=== PATIENT | female | born 1935 | race Caucasian/White ===

== ENCOUNTER 2020-04-09 12:47 | Inpatient (IN) | payer MEDICARE, SELFPAY ==
[2020-04-09] VITALS (17 sets, daily range): BP systolic 102–166; BP diastolic 53–118; PULSE 107–142; RESP 13–26; TEMP 36.8–37.7; O2SAT 94–100; BMI 43.8
--- NOTE | ~2020-04-09 | XR_ITS ---
EXAMINATION: XR chest 1V portable INDICATION: Pneumonia TECHNIQUE: Portable AP chest at 1307 hours COMPARISON: 04/09/2020 FINDINGS: There is stable cardiomegaly. Patchy interstitial and airspace opacities persist with sligh t improvement. No pleural effusion or pneumothorax is identified. IMPRESSION: 1. Patchy bilateral opacities with interval improvement, consistent with atelectasis versus pneumonia versus pulmonary edema. 2. Cardiomegaly. Reviewed, dictated and finalized at location B. IMPRESSION: 1. Patchy bilateral opacities with interval improvement, consistent with atelec tasis versus pneumonia versus pulmonary edema. 2. Cardiomegaly.
--- NOTE | ~2020-04-09 | XR_ITS ---
EXAMINATION: XR chest 1V portable DATE: 04/14/2020 06:32 INDICATION: Pneumonia TECHNIQUE: frontal view of the chest was obtained. COMPARISON: Chest radiograph dated 04/11/2020 FINDINGS: Cardiomegaly. No interval change in a mildly increased interstitial pattern throughout both lungs. No pleural effusion or pneumothorax. IMPRESSION: 1. . Diffuse bilateral increased interstitial pattern which could represent pulmonary edema or pneumo nehemiah. 2. Cardiomegaly. Reviewed, dictated and finalized at location A. IMPRESSION: 1. . Diffuse bilateral increased interstitial pattern which could represent pul monary edema or pneumonia. 2. Cardiomegaly.
--- NOTE | ~2020-04-09 | XR_ITS ---
EXAMINATION: XR chest 1V portable INDICATION: Nausea and weakness TECHNIQUE: Portable AP chest at 1333 hours COMPARISON: 06/05/2010 FINDINGS: There are patchy bilateral interstitial and airspace opacities. Cardiomegaly is noted. No p leural effusion or pneumothorax is identified. IMPRESSION: 1. Patchy bilateral opacities which could reflect atelectasis versus pneumonia versus pulmonary edema . Reviewed, dictated and finalized at location A. IMPRESSION: 1. Patchy bilateral opacities which could reflect atelectasis versus pneumonia versus pulmonary edema.
--- NOTE | 2020-04-09 12:46 | ECG_ITS ---
Measurements Intervals [place] Rate: 145 P: KS: 0 QRS: -79 QRSD: 97 T: 62 QT: 303 QTc: 472 Interpretive Statements ATRIAL FIBRILLATION WITH RAPID VENTRICULAR RESPONSE VENTRICULAR PREMATURE COMPLEXES LEFT AXIS DEVIATION INCOMPLETE RIGHT BUNDLE BRANCH BLOCK CONSIDER INFERIOR INFARCT, AGE INDETERMINATE BORDERLINE ST-T WAVE ABNORMALITY- HIGH LATERAL LEADS ABNORMAL ECG Electronically Signed On 04-09-2020 13:05:01 CDT by Leland Sauer D.O.
[2020-04-09 13:34] LABS: Basophils Absolute Auto 0.1 K/mm3 (0.0-0.1); Basophils Percent Auto 0.4 % (0.2-1.2); Eosinophils Percent Auto 0.1 % (0-4.4); Hematocrit 45.5 % (37.0-47.0); Immature Granulocyte Absolute 0.08 K/mm3 (0.00-0.031); Immature Granulocyte Percent A 0.6 % (0-0.5); Lymphocytes Percent Auto 4.5 % (18.3-44.2); Mean Corpuscular Hemoglobin 30.7 pg (26-34); Mean Platelet Volume 10.2 fl (7.4-10.4); Monocytes Absolute Auto 1.4 K/mm3 (0.1-0.6); Monocytes Percent Auto 10.3 % (2.6-8.5); Neutrophils Absolute Auto 11.4 K/mm3 (1.3-6.7); Neutrophils Percent Auto 84.1 % (45.5-73.1); Platelet Count Result 232 k/mm3 (150-375); Red Blood Count 4.89 M/mm3 (4.2-5.4); Red Cell Distribution Width 13.9 % (11.5-14.5); White Blood Count 13.5 K/mm3 (4.5-10.0)
[2020-04-09 14:00] LABS: Add Urine Microscopic? YES; Appearance Urine Turbid (Clear); Bacteria Urine 1+ /hpf; Bilirubin Urine Negative (Negative); Blood Urine 3+ (Negative); Color Urine Yellow (Yellow); Glucose Urine UA Negative (Negative); Ketones Urine Trace mg/dL (Negative); Leukocyte Esterase Ur 2+ LEU/UL (Negative); Mucus Urine Few /lpf; Nitrate Urine Positive (Negative); Protein Urine 2+ mg/dL (Negative); RBC Urine >75 /hpf (0-2); Specific Grav Ur 1.016 (1.001-1.035); WBC Clumps Urine Present /HPF; WBC Urine >75 /hpf
--- NOTE | 2020-04-09 14:23 | PC.NURSE ---
lab unrecieved blood, [employer] redrawing labwork.
--- NOTE | 2020-04-09 14:24 | PC.NURSE ---
pt moved to room 7 due to droplet precautions.
--- NOTE | 2020-04-09 14:24 | ED.GENADULT ---
HPI - General Adult General Chief complaint: Weakness Stated complaint: WEAKNESS Time Seen by Provider: 04/09/20 13:44 Source: patient History of Present Illness HPI narrative: Patient is a 84 y/o female complaining of severe generalized weakness for 3-4 days. There is no alleviating or exacerbating factor. She also has some nausea, vomiting and dysuria. She denies any headache, cough, chest pain or abdominal pain. Of note, patient was unable to get up to open the door when EMS arrived. She reports that she has not been taking her meds for several days. Related Data Home Medications Medication Instructions Recorded Confirmed furosemide 40 mg tablet 40 mg PO QAM 12/03/19 lisinopril 40 mg tablet 40 mg PO BID tablet 12/03/19 metoprolol tartrate 50 mg tablet 50 mg PO BID tablet 12/03/19 omeprazole 40 mg capsule,delayed 40 mg PO DAILY 12/03/19 release Allergies Allergy/AdvReac Type Severity Reaction Status Date / Time No Known Drug Allergies Allergy Unknown Verified 04/15/15 13:34 Review of Systems Constitutional: Constitutional: Denies chills, Denies fever(s), Denies headache(s) and Reports weakness Eyes: Eyes: Denies blurry vision ENT: Denies headache(s) and Denies neck pain Cardiovascular: Cardiovascular: Denies chest pain and Denies dyspnea Respiratory: Respiratory: Denies cough and Denies dyspnea Gastrointestinal: Gastrointestinal: Denies abdominal pain, Denies diarrhea, Reports nausea and Reports vomiting Genitourinary: Genitourinary: Denies hematuria and Reports dysuria Musculoskeletal: Musculoskeletal: Denies back pain and Denies neck pain Neurologic: Denies headache(s), Denies focal weakness and Reports weakness PMFSH Past Medical History Medical History Acquired hypothyroidism Anxiety associated with depression Essential (primary) hypertension Generalized weakness Mixed hyperlipidemia Onychomycosis Pulmonary nodules Family History Family History Sibling Family history of kidney disease Family history of coronary artery disease Patient's sister is Mother Patient's mother is Father Patient's father is Social History Social History Smoking status: Never smoker Second hand tobacco smoke exposure: No Alcohol intake: current Gender identity (if verbalized by the patient): Female Exam Const: General: no acute distress and well developed Orientation/consciousness: oriented to person, oriented to place, oriented to time and patient oriented x3 HENMT: Head: normocephalic Ears: external ears normal General nose exam: Normal external nose present Eyes: General: appearance normal, both eyes and all related structures Conjunctivae: conjunctivae normal Neck: Neck: normal visual inspection and full ROM Chest: Chest palpation & inspection: normal inspection of the chest and no tenderness Resp: Effort & Inspection: normal respiratory effort Auscultation: clear to auscultation bilaterally Cardio: Rate: tachycardic Rhythm: abnormal rhythm irregularly irregular GI: GI Palp: No abdominal tenderness and Yes Soft to palpation Skin: General skin exam: normal color and turgor normal Neuro: General: oriented to person, oriented to place, oriented to time and patient oriented x3 Cognition (Neuro): normal cognition Extrem: General: normal to inspection, full ROM and no pedal edema Psych: Appearance: grossly normal Mental Status: mental status grossly normal Affect: normal affect Course Consultations Consultation #1: Discussed with ADDISON Norris, who agrees to admit to Dr. Cadena. Date: 04/09/20 Time: 15:23 Vital Signs Vital signs: Vital Signs Temperature 37.7 C H 04/09/20 12:47 Pulse Rate 140 H 04/09/20 12:47 Respiratory Rate 22 H 04/09/20 12:47 Blood Pressure 157
[2020-04-09] MEDS: dilTIAZem HCl INJ 25 MG/5 ML VIAL 10 MG IV PUSH (14:36)
[2020-04-09 15:04] LABS: Lactic Acid Reflex 1.1 mmol/L (0.7-2.1)
[2020-04-09 15:05] LABS: Alanine Aminotransferase 24 U/L (4-35); Albumin Level 3.7 g/dL (3.5-5.1); Alkaline Phosphatase 162 U/L (38-126); Aspartate Amino Transferase 38 U/L (14-36); Blood Urea Nitrogen 20 mg/dL (7-17); Calcium 8.7 mg/dL (8.4-10.2); Carbon Dioxide 26 mmol/L (22-30); Chloride 99 mmol/L (98-107); Estimated CRCL calculation 44 ml/min; Estimated Glomerular Filt Rate 60; Glucose 132 mg/dL (65-105); Sodium 133 mmol/L (137-145)
[2020-04-09 15:12] LABS: NT Pro B Type Natriuretic Pept 3670 PG/ML (5-100)
--- NOTE | 2020-04-09 15:36 | PC.NURSE ---
SPOKE WITH MAGDIEL SORENSON ABOUT LR WEIGHT BASED BOLUS, MENTIONED PT ELEVATED BNP AND TAKING LASIX DAILY FOR FLUID RETENTION, ERP AGREES THAT PT DOES NOT NEED 30ML/KG BOLUS AND HAS GIVEN A VOR FOR 1L LR TO BE ADMINISTERED AT 999/HR.
[2020-04-09 15:44] LABS: Troponin I 0.013 ng/mL (0.000-0.034)
--- NOTE | 2020-04-09 17:35 | PC.NURSE ---
PT IRRITATED W/ STAFF THAT WE HAVE NOT FED HER, STATES THAT SHE HASN'T EATEN IN 2 WEEKS AND SHE CANNOT BELIEVE THAT WE HAVE NOT FED HER. SHE IS ALSO ANGERED THAT THERE IS A BAR ON THE SIDE OF THE STRETCHER, STATES THIS IS JUST RIDICULOUS AND NOT MADE FOR OLD PEOPLE, WHEN YOU (MYSELF) GET TO BE 83 YOU'LL ACTUALLY BE ABLE TO UNDERSTAND THAT. I THEN ASSISTED PT TO THE COMMODE AGAIN AND MADE SURE THE CALL LIGHT WAS AT THE BEDSIDE. PT TEARFUL AND UPSET, REMINDED PT THAT I WILL CALL FOR A TRAY GALO.
--- NOTE | 2020-04-09 17:41 | PC.NURSE ---
HEART HEALTHY DIET REQUEST FOR PT, SENT TO ICU.
[2020-04-09 18:14] LABS: Troponin I 0.019 ng/mL (0.000-0.034)
--- NOTE | 2020-04-09 19:18 | PM.IMHP ---
H&P: HPI History of Present Illness Date/Time: 04/09/20 19:18 Chief complaint: sepsos,uti,a fib with rvr Narrative: Liliana Navarro is a 84 year old female Who stated that she has had a poor appetite since this past Tuesday. She has been nauseated. She has a long history of atrial fibrillation she stated that they tried to cardiovert her in the past and adjusted work. She had been on Xarelto at 1 time but is no longer taking it. She is on p.o. Cardizem. The patient stated that she has not been able to take her pills the last couple days she has felt too ill. She said that she felt very weak and could not get out of bed. She also had burning with urination. She has had no cough for fever or chills. No chest pain. The patient was found to be in AFib with RVR and was placed on a Cardizem drip. She was found have a UTI. She was placed on Rocephin. Chest x-ray was read as patchy bilateral opacities which could reflect atelectasis versus pneumonia versus pulmonary edema. Per my view it looks more and like pulmonary edema. Patient has a white count of 13.5. BMP noted as 3670. I have spent approximately 1 hour critical care time with the patient. Date of service is 04/09/2020 Review of Systems Review of Systems: All systems reviewed & are unremarkable except as noted in HPI and below Constitutional: Constitutional: Reports as per HPI and Reports no additional constitutional complaints Eyes: Eyes: Reports as per HPI and Reports no additional eye complaints ENT: Reports system reviewed and no additional complaints, except as documented and Reports Normal hearing present Cardiovascular: Cardiovascular: Reports no additional cardiovascular complaints Respiratory: Respiratory: Reports no additional respiratory complaints and Reports no additional respiratory complaints Gastrointestinal: Gastrointestinal: Reports as per HPI and Reports no additional gastrointestinal complaints Musculoskeletal: Musculoskeletal: Reports no additional musculoskeletal complaints Integumentary/Breasts: Skin/Breast: Reports system reviewed and no additional complaints, except as docu and Reports as per HPI Neurologic: Reports system reviewed and no additional complaints, except as documented, Reports as per HPI and Reports Normal hearing present Psychiatric: Psychiatric: Reports no additional psychiatric complaints and Reports as per HPI Endocrine: Endocrine: Reports no additional endocrine complaints Hematologic/Lymphatic: Hematologic/Lymphatic: Reports no additional hematologic/lymphatic complaints Allergic/Immunologic: Allergic/Immunologic: Reports no additional allergic/immunologic complaints PMF Past Medical History Medical History (Updated 04/09/20 @ 19:38 by Myrna Fischer NP) Acquired hypothyroidism Anxiety associated with depression Essential (primary) hypertension ISABELLE (generalized anxiety disorder) Generalized weakness Mixed hyperlipidemia Onychomycosis Pulmonary nodules Surgical History Surgical History (Updated 04/09/20 @ 19:28 by Myrna Fischer NP) H/O colonoscopy with polypectomy H/O: hysterectomy History of tonsillectomy Family History Family History (Updated 04/09/20 @ 19:32 by Myrna Fischer NP) Sibling Family history of kidney disease Family history of coronary artery disease Patient's sister is Mother Patient's mother is Alzheimer's dementia Father Patient's father is Heart disease Social History Social History (Updated 04/09/20 @ 19:29 by Myrna Fischer NP) Social History: the patient is and she lives home alone. She has a son and a daughter but she has been which estrange from them. She thinks that her son might be her durable [id number]. The patient desires to be a full code at this point. She is retired sales secretary. She had she never smoked use marijuana alcohol or drugs. Smoking status: Never smoker Second hand tob
[2020-04-09 21:14] LABS: Troponin I 0.029 ng/mL (0.000-0.034)
[2020-04-09] MEDS: ENOXAPARIN 40 MG/0.4 ML SYRINGE SUB-Q (22:19)
[2020-04-09 22:54] LABS: SARS-CoV-2 RNA PCR Negative
[2020-04-10] VITALS (15 sets, daily range): BP systolic 114–139; BP diastolic 52–92; PULSE 80–127; RESP 20–27; TEMP 36.5–37.5; O2SAT 94–99
--- NOTE | 2020-04-10 | ECHO_ITS ---
Patient Info Name: Liliana Navarro Age: 84 years : 1935 Gender: Female Ht: 66 in Wt: 271 lbs BSA: 2.46 m2 HR: 107 bpm BP: 139 / 89 mmHg Heart Rhythm: Atrial Fibrillation Technical Quality: Fair Exam Date: 04/10/2020 1:56 PM Exam Location: [facility] Pul[facility] Patient Status: Inpatient Admit Date: 04/09/2020 Staff Ordering Physician: Myrna Fischer NP Office Nurse: Alondra Campbell RDCS Attending Provider: Debbie Cadena MD Referring Physician: Amado HANLEY; Exam Type: CA echo dop color flow w con Study Info Indications J81.0 - Acute pulmonary edema Complete two-dimensional, color flow and Doppler transthoracic echocardiogram is performed with contrast to opacify the left ventricle and to improve the deliniation of the left ventricle endocardial borders. Contrast/Agitated Saline Contrast/Ag. Saline: Definity Amount: 1.50 ml Administered By: Charlie Porter, ANGELINA Summary 1. Left ventricular chamber dimension is normal. 2. Definity contrast administered improved wall motion interpretation. 3. Left ventricular systolic function is normal, estimated at 60-65%. 4. The left ventricular diastolic function is abnormal. 5. E/e' 12 is mildly elevated. 6. Left atrial chamber dimension is moderately enlarged. 7. Right atrial chamber dimension is moderately enlarged. 8. There is mild aortic valve sclerosis. 9. There is mild aortic valve stenosis w a peak velocity of 190.96 cm/s, mean gradient of 9 mmHg, and aortic valve area of 1.9 cm2. 10. The mitral valve has mildly calcified annulus. 11. Mild systolic anterior motion of mitral valve. 12. There is mild to moderate tricuspid valve regurgitation. 13. Mild pulmonary hypertension, estimated pulmonary arterial systolic pressure is 42 mmHg. Left Ventricle E/e' 12 is mildly elevated. Definity contrast administered improved wall motion interpretation. Left ventricular chamber dimension is normal. Left ventricular systolic function is normal, estimated at 60-65%. The left ventricular diastolic function is abnormal. Right Ventricle Right ventricular chamber dimension is normal. Right ventricular systolic function is normal. Left Atria Left atrial chamber dimension is moderately enlarged. Right Atria Right atrial chamber dimension is moderately enlarged. Aortic Valve There is mild aortic valve stenosis w a peak velocity of 190.96 cm/s, mean gradient of 9 mmHg, and aortic valve area of 1.9 cm2. The aortic valve is probable trileaflet. There is mild aortic valve sclerosis. There is no aortic valve regurgitation. Pulmonic Valve There is no pulmonic regurgitation. Mitral Valve The mitral valve has mildly calcified annulus. Mild systolic anterior motion of mitral valve. There is no mitral valve stenosis. There is no mitral valve regurgitation. Tricuspid Valve There is mild to moderate tricuspid valve regurgitation. Mild pulmonary hypertension, estimated pulmonary arterial systolic pressure is 42 mmHg. Pericardium/Pleural There is no pericardial effusion. Inferior Vena Cava Normal inferior vena cava with >50% collapse upon inspiration consistent with normal right atrial pressure, 5 mmHg. Aorta The aortic root size at the sinus of Valsalva is normal. Left Ventricular Outflow Tract Name Value Normal
[2020-04-10 04:49] LABS: Basophils Percent Auto 0.4 % (0.2-1.2); Eosinophils Percent Auto 0.4 % (0-4.4); Hematocrit 45.1 % (37.0-47.0); Hemoglobin 14.5 g/dL (12.0-15.0); Immature Granulocyte Absolute 0.03 K/mm3 (0.00-0.031); Immature Granulocyte Percent A 0.3 % (0-0.5); Lymphocytes Absolute Auto 0.81 K/mm3 (0.9-3.2); Lymphocytes Percent Auto 7.9 % (18.3-44.2); Mean Corpuscular HGB Conc 32.2 g/dl (32-36); Mean Corpuscular Hemoglobin 30.7 pg (26-34); Mean Corpuscular Volume 95.3 fl (80-100); Mean Platelet Volume 10.2 fl (7.4-10.4); Monocytes Absolute Auto 1.5 K/mm3 (0.1-0.6); Monocytes Percent Auto 14.5 % (2.6-8.5); Neutrophils Absolute Auto 7.9 K/mm3 (1.3-6.7); Neutrophils Percent Auto 76.5 % (45.5-73.1); Platelet Count Result 208 k/mm3 (150-375); Red Blood Count 4.73 M/mm3 (4.2-5.4); Red Cell Distribution Width 13.7 % (11.5-14.5); White Blood Count 10.3 K/mm3 (4.5-10.0)
[2020-04-10 05:07] LABS: Alanine Aminotransferase 24 U/L (4-35); Albumin Level 3.4 g/dL (3.5-5.1); Alkaline Phosphatase 151 U/L (38-126); Anion Gap 11.6 mmol/L (7-16); Aspartate Amino Transferase 43 U/L (14-36); Bilirubin,Total 0.9 mg/dL (0.2-1.3); Blood Urea Nitrogen 23 mg/dL (7-17); Calcium 8.5 mg/dL (8.4-10.2); Carbon Dioxide 28 mmol/L (22-30); Chloride 96 mmol/L (98-107); Estimated CRCL calculation 49 ml/min; Estimated Glomerular Filt Rate 53; Glucose 143 mg/dL (65-105); Magnesium 1.7 mg/dL (1.6-2.3); Potassium 3.6 mmol/L (3.4-5.0); Sodium 132 mmol/L (137-145)
--- NOTE | 2020-04-10 08:53 | PC.NURSE ---
This patient, Liliana Navarro, was received from [ICU report from [facility] ] on 04/10/20 at 0854. Personal belongings list checked and signed. Patient/family oriented to unit policies and routines. Patient stable and received breakfast tray eating well. Cardizem drip running at 15 mls/hr.
[2020-04-10] MEDS: PERFLUTREN LIPID MICROSPHERES 1.5 ML VIAL DILUTED TO 10 ML TOTAL VOLUME IV PUSH (14:29)
[2020-04-10] MEDS: ENOXAPARIN 40 MG/0.4 ML SYRINGE SUB-Q (19:58)
[2020-04-11] VITALS (14 sets, daily range): BP systolic 120–155; BP diastolic 65–95; PULSE 60–126; RESP 18–24; TEMP 36.5–37.4; O2SAT 95–98; BMI 10.0
[2020-04-11 08:57] LABS: Hematocrit 42.2 % (37.0-47.0); Hemoglobin 13.9 g/dL (12.0-15.0); Mean Corpuscular HGB Conc 32.9 g/dl (32-36); Mean Platelet Volume 10.2 fl (7.4-10.4); Platelet Count Result 224 k/mm3 (150-375); Red Blood Count 4.49 M/mm3 (4.2-5.4); Red Cell Distribution Width 13.7 % (11.5-14.5); White Blood Count 8.1 K/mm3 (4.5-10.0)
[2020-04-11 09:11] LABS: Alanine Aminotransferase 25 U/L (4-35); Albumin Level 3.2 g/dL (3.5-5.1); Alkaline Phosphatase 135 U/L (38-126); Anion Gap 9.7 mmol/L (7-16); Aspartate Amino Transferase 39 U/L (14-36); Bilirubin,Total 0.4 mg/dL (0.2-1.3); Blood Urea Nitrogen 26 mg/dL (7-17); Calcium 8.4 mg/dL (8.4-10.2); Carbon Dioxide 29 mmol/L (22-30); Chloride 99 mmol/L (98-107); Estimated CRCL calculation 60 ml/min; Estimated Glomerular Filt Rate > 60; Glucose 111 mg/dL (65-105); Magnesium 1.9 mg/dL (1.6-2.3); Potassium 3.7 mmol/L (3.4-5.0); Sodium 134 mmol/L (137-145)
--- NOTE | 2020-04-11 11:32 | PCPTNOTE ---
Patient refused treatment this session. Attempted to see patient at 11:25 for PT treatment, however patient on commode and tearful/emotional. Patient requested for therapy to come back later. [employer] will attempt therapy again in PM. Shae Karimi PTA
--- NOTE | 2020-04-11 16:45 | PM.IMPN ---
Progress Note: A&P Assessment and Plan (1) Atrial fibrillation with RVR: Code(s): I48.91 - Unspecified atrial fibrillation Status: Acute Assessment and Plan: patient typically takes diltiazem at home. But stated that she was too sick to take it the last couple days. She is now on a Cardizem drip. She is located in the ICU. Her heart rate is in the lower 1 teens. Blood pressure is still slightly elevated. The patient stated that she was on Xarelto at 1 time. However she is at high risk for bleeding due to her age and instability. 04/11/20 16:45 patient is 84-year-old female presented emergency with with complaint generalized weakness nausea or vomiting and dysuria, patient has history of atrial fibrillation and has been taking oral diltiazem however due to symptoms she has not been able to take any of her medication for last 2 days and nausea presented in atrial fibrillation with RVR patient was started on diltiazem drip rate is trending down however patient has lost her IV and off the drip difficult to start IV, will start the patient on diltiazem 60 mg q.6 monitor will consult Cardiology further recommendation, chest x-ray shows patchy infiltrate and being treated with community-acquired pneumonia with Rocephin and azithromycin, patient also has a dysuria urine culture is growing E coli sensitive to Rocephin will continue, patient still complains of dysuria and frequency of urination denies any fever or chills denies any chest pain palpitation. (2) CAP (community acquired pneumonia): Code(s): J18.9 - Pneumonia, unspecified organism Status: Acute Assessment and Plan: Patient is on a Zithromax and Rocephin. When I looked at the chest x-ray myself it looks more like pulmonary edema. I did order an echo for her. At 1 time she had been on Lasix a couple years ago according to [facility] has not renewed her prescription. (3) UTI (urinary tract infection): Qualifiers: Hematuria presence: without hematuria Urinary tract infection type: site unspecified Qualified Code(s): N39.0 - Urinary tract infection, site not specified Code(s): N39.0 - Urinary tract infection, site not specified Status: Acute Assessment and Plan: She is on Rocephin. Urine and blood cultures ar (4) Suspected COVID-19 virus infection: Code(s): Z20.828 - Contact with and (suspected) exposure to other viral communicable diseases Status: Acute (5) ISABELLE (generalized anxiety disorder): Code(s): F41.1 - Generalized anxiety disorder Status: Chronic Assessment and Plan: continue with her Celexa. (6) Essential (primary) hypertension: Code(s): I10 - Essential (primary) hypertension Status: Acute Assessment and Plan: She is on oral diltiazem typically but now she is on a drip at this time. (7) Acquired hypothyroidism: Code(s): E03.9 - Hypothyroidism, unspecified Status: Acute Assessment and Plan: Continue to levothyroxine and check thyroid level (8) Anxiety associated with depression: Code(s): F41.8 - Other specified anxiety disorders Status: Acute Assessment and Plan: Continue with Celexa. Subjective Date/time seen: 04/11/20 16:45 patient is 84-year-old female presented emergency with with complaint generalized weakness nausea or vomiting and dysuria, patient has history of atrial fibrillation and has been taking oral diltiazem however due to symptoms she has not been able to take any of her medication for last 2 days and nausea presented in atrial fibrillation with RVR patient was started on diltiazem drip rate is trending down however patient has lost her IV and off the drip difficult to start IV, will start the patient on diltiazem 60 mg q.6 monitor will consult Cardiology further recommendation, chest x-ray shows patchy infiltrate and being treated with community-acquired pneumonia with Rocephin and a
[2020-04-11] MEDS: dilTIAZem HCL 60 MG TABLET PO (18:36)
[2020-04-11] MEDS: CELECOXIB 200 MG CAPSULE PO (18:36)
[2020-04-11] MEDS: ENOXAPARIN 40 MG/0.4 ML SYRINGE SUB-Q (21:29)
[2020-04-12] VITALS (12 sets, daily range): BP systolic 120–152; BP diastolic 62–96; PULSE 72–119; RESP 16–22; TEMP 35.6–36.9; O2SAT 93–98
[2020-04-12] MEDS: dilTIAZem HCL 60 MG TABLET PO ×4 (00:24→18:35)
[2020-04-12 04:57] LABS: Hematocrit 39.9 % (37.0-47.0); Hemoglobin 12.9 g/dL (12.0-15.0); Mean Corpuscular HGB Conc 32.3 g/dl (32-36); Mean Corpuscular Hemoglobin 30.3 pg (26-34); Mean Corpuscular Volume 93.7 fl (80-100); Mean Platelet Volume 9.8 fl (7.4-10.4); Platelet Count Result 233 k/mm3 (150-375); Red Blood Count 4.26 M/mm3 (4.2-5.4); Red Cell Distribution Width 13.6 % (11.5-14.5); White Blood Count 7.9 K/mm3 (4.5-10.0)
[2020-04-12 05:14] LABS: Anion Gap 6 mmol/L (8-16); Blood Urea Nitrogen 25 mg/dL (7-17); Calcium 8.5 mg/dL (8.4-10.2); Carbon Dioxide 29 mmol/L (22-30); Chloride 100 mmol/L (98-107); Estimated CRCL calculation 60 ml/min; Estimated Glomerular Filt Rate > 60; Glucose 110 mg/dL (65-105); Potassium 3.6 mmol/L (3.4-5.0); Sodium 135 mmol/L (137-145)
[2020-04-12] MEDS: LEVOTHYROXINE SODIUM 150 MCG TABLET PO (06:18)
--- NOTE | 2020-04-12 08:39 | WPDCN ---
Assessment and Plan Assessment and plan (1) Atrial fibrillation with RVR: Code(s): I48.91 - Unspecified atrial fibrillation Status: Acute Assessment and Plan: Patient has a long history of paroxysmal atrial fibrillation and was admitted with AFib RVR after she had stopped her diltiazem because of illness. Heart rate is now controlled with p.o. diltiazem. I will switch her to Home medication of diltiazem 240 mg daily. Discussed atrial fibrillation extensively with the patient, need for ongoing medication, and risk of cardioembolic events. She tolerated Eliquis well in the past and we will resume this. she is aware of the risk of GI bleeding when combined with nonsteroidal such as Celebrex, but also states her arthritis is so severe that she can't do without it. She tolerated Celebrex with Eliquis in the past, and has no history of GI bleeding. (2) Acute diastolic CHF (congestive heart failure): Code(s): I50.31 - Acute diastolic (congestive) heart failure Status: Acute Assessment and Plan: The patient appears to have had some transient diastolic heart failure on admission which has mostly resolved with better heart rate control, due to AFib RVR and diastolic dysfunction. (3) UTI (urinary tract infection): Qualifiers: Hematuria presence: without hematuria Urinary tract infection type: site unspecified Qualified Code(s): N39.0 - Urinary tract infection, site not specified Code(s): N39.0 - Urinary tract infection, site not specified Status: Acute Assessment and Plan: On antibiotics, improving. Blood cultures negative. (4) Essential (primary) hypertension: Code(s): I10 - Essential (primary) hypertension Status: Acute Assessment and Plan: Will resume the diltiazem (5) Mixed hyperlipidemia: Code(s): E78.2 - Mixed hyperlipidemia Status: Acute Assessment and Plan: currently not treated. (6) Noncompliance: Code(s): Z91.19 - Patient's noncompliance with other medical treatment and regimen Status: Acute Assessment and Plan: Patient has been noncompliant with follow-up with our office which may be a problem with appropriate medical care. (7) Anxiety associated with depression: Code(s): F41.8 - Other specified anxiety disorders Status: Acute Assessment and Plan: The patient has psychosocial stressors and no family support. She may benefit from social director. She is wondering how long she will be able to remain in her own house but has no help. Additional Plan Okay to transfer out of [facility] Data of Consult Date/Time: 04/12/20 08:39 Requesting Physician: Debbie Cadena MD Primary Care Provider: Bimal Khanna DO Consult Narrative Narrative: Date of service: 04/12/2020 Liliana Navarro is a 84 year old female Whom we were asked to see at the request of Dr. Cadena for advice and opinion regarding the patient's AFib RVR, in consultation. . New the patient felt ill and weak for the last several days, too sick to get out of bed, with dysuria. She also stopped taking her medications. She was admitted with AFib RVR, heart rate in the 140s as well as a UTI and possible pneumonia /CHF. She was treated with IV Cardizem and has been switched to diltiazem 60 mg q.6 hours. Telemetry shows her AFib rate ranges between 70 and 100 beats per minute. the patient has a history of paroxysmal atrial fibrillation and moderate mitral and tricuspid regurgitation seen by echo in 2013. She has hypertensive heart disease, hyperlipidemia and has had some mild bradycardia in the past. She has been on amiodarone in the past, stopped in 2008 for suspected ami
[2020-04-12] MEDS: CELECOXIB 200 MG CAPSULE PO ×2 (08:45→18:35)
[2020-04-12] MEDS: CITALOPRAM HYDROBROMIDE 20 MG TABLET PO (08:45)
--- NOTE | 2020-04-12 12:59 | PC.NURSE ---
This patient, Liliana Navarro, was transferred to [facility] on 04/12/20 at 1252. Personal belongings sent with patient. Belongings list checked. Report given to Jenna ALFARO. Appropriate documentation sent with patient.
--- NOTE | 2020-04-12 14:03 | PM.IMPN ---
Progress Note: A&P Assessment and Plan (1) Atrial fibrillation with RVR: Code(s): I48.91 - Unspecified atrial fibrillation Status: Acute Assessment and Plan: patient typically takes diltiazem at home. But stated that she was too sick to take it the last couple days. She is now on a Cardizem drip. She is located in the ICU. Her heart rate is in the lower 1 teens. Blood pressure is still slightly elevated. The patient stated that she was on Xarelto at 1 time. However she is at high risk for bleeding due to her age and instability. 04/12/20 14:03 patient is 84-year-old female presented emergency with with complaint generalized weakness nausea or vomiting and dysuria, patient has history of atrial fibrillation and has been taking oral diltiazem however due to symptoms she has not been able to take any of her medication for last 2 days and nausea presented in atrial fibrillation with RVR patient was started on diltiazem drip rate is trending down however patient had lost her IV and off the drip difficult to start IV, started the patient on diltiazem 60 mg q.6 monitor, today rate is trading and was seen Cardiology and switched patient to her home dose of Diltiazem 240mg daily and starte back on he Eliquis to prevent risk of CVA. chest x-ray showed patchy infiltrate and being treated with community-acquired pneumonia with Rocephin and azithromycin, patient also has a dysuria urine culture is growing E coli sensitive to Rocephin will continue, today patient states feeling much abdominal pain dysuria has improved and shortness of breath is better denies any chest pain shortness of breath palpitation fever or chills. (2) CAP (community acquired pneumonia): Code(s): J18.9 - Pneumonia, unspecified organism Status: Acute Assessment and Plan: Patient is on a Zithromax and Rocephin. When I looked at the chest x-ray myself it looks more like pulmonary edema. I did order an echo for her. At 1 time she had been on Lasix a couple years ago according to [facility] has not renewed her prescription. (3) UTI (urinary tract infection): Qualifiers: Hematuria presence: without hematuria Urinary tract infection type: site unspecified Qualified Code(s): N39.0 - Urinary tract infection, site not specified Code(s): N39.0 - Urinary tract infection, site not specified Status: Acute Assessment and Plan: She is on Rocephin. Urine and blood cultures ar (4) Suspected COVID-19 virus infection: Code(s): Z20.828 - Contact with and (suspected) exposure to other viral communicable diseases Status: Acute (5) ISABELLE (generalized anxiety disorder): Code(s): F41.1 - Generalized anxiety disorder Status: Chronic Assessment and Plan: continue with her Celexa. (6) Essential (primary) hypertension: Code(s): I10 - Essential (primary) hypertension Status: Acute Assessment and Plan: She is on oral diltiazem typically but now she is on a drip at this time. (7) Acquired hypothyroidism: Code(s): E03.9 - Hypothyroidism, unspecified Status: Acute Assessment and Plan: Continue to levothyroxine and check thyroid level (8) Anxiety associated with depression: Code(s): F41.8 - Other specified anxiety disorders Status: Acute Assessment and Plan: Continue with Celexa. Subjective Date/time seen: 04/12/20 14:03 patient is 84-year-old female presented emergency with with complaint generalized weakness nausea or vomiting and dysuria, patient has history of atrial fibrillation and has been taking oral diltiazem however due to symptoms she has not been able to take any of her medication for last 2 days and nausea presented in atrial fibrillation with RVR patient was started on diltiazem drip rate is trending down however patient had lost her IV and off the drip difficult to start IV, started the patient on diltiazem 60 mg
--- NOTE | 2020-04-12 15:43 | PC.NURSE ---
I responded to room 303 after hearing the patient yelling out loud at a [employer] tech. When I asked the patient why she was yelling she stated that no one has helped her do anything today. I asked the patient to provide examples of when this has happened so I could address them and she told me that I won't be able to help her. I explained to what my role is as the charge nurse and that I would be able to help figure out what staff is not responding to. The patient then cut me off from speaking and mimicked talking and started making noises. Bed alarm was turned on and call light was put within reach of the patient.
--- NOTE | 2020-04-12 18:37 | PCDIET ---
This patient, Liliana Navarro, was received from IMU on 04/12/20 at 1250. Report received from ANGELINA Odonnell. Personal belongings list checked and signed. Patient/family oriented to unit policies and routines
[2020-04-12] MEDS: APIXABAN 5 MG TABLET PO (20:27)
[2020-04-13] VITALS (9 sets, daily range): BP systolic 108–153; BP diastolic 63–92; PULSE 84–105; RESP 18–20; TEMP 36.6–36.9; O2SAT 96–98
[2020-04-13] MEDS: dilTIAZem HCL 60 MG TABLET PO (00:46)
[2020-04-13 06:32] LABS: Hematocrit 42.2 % (37.0-47.0); Hemoglobin 13.7 g/dL (12.0-15.0); Mean Corpuscular HGB Conc 32.5 g/dl (32-36); Mean Corpuscular Hemoglobin 30.8 pg (26-34); Mean Corpuscular Volume 94.8 fl (80-100); Mean Platelet Volume 9.8 fl (7.4-10.4); Platelet Count Result 266 k/mm3 (150-375); Red Blood Count 4.45 M/mm3 (4.2-5.4); Red Cell Distribution Width 13.7 % (11.5-14.5); White Blood Count 6.9 K/mm3 (4.5-10.0)
[2020-04-13 06:54] LABS: Anion Gap 5 mmol/L (8-16); Blood Urea Nitrogen 22 mg/dL (7-17); Calcium 8.5 mg/dL (8.4-10.2); Carbon Dioxide 31 mmol/L (22-30); Chloride 100 mmol/L (98-107); Estimated CRCL calculation 68 ml/min; Estimated Glomerular Filt Rate > 60; Glucose 131 mg/dL (65-105); Potassium 3.6 mmol/L (3.4-5.0); Sodium 136 mmol/L (137-145)
[2020-04-13] MEDS: CELECOXIB 200 MG CAPSULE PO ×2 (09:26→18:44)
[2020-04-13] MEDS: APIXABAN 5 MG TABLET PO ×2 (09:26→20:18)
[2020-04-13] MEDS: CITALOPRAM HYDROBROMIDE 20 MG TABLET PO (09:26)
--- NOTE | 2020-04-13 12:19 | PM.IMPN ---
Progress Note: A&P Assessment and Plan (1) Atrial fibrillation with RVR: Code(s): I48.91 - Unspecified atrial fibrillation Status: Acute Assessment and Plan: patient typically takes diltiazem at home. But stated that she was too sick to take it the last couple days. She is now on a Cardizem drip. She is located in the ICU. Her heart rate is in the lower 1 teens. Blood pressure is still slightly elevated. The patient stated that she was on Xarelto at 1 time. However she is at high risk for bleeding due to her age and instability. 04/13/20 12:19 patient is 84-year-old female presented emergency with with complaint generalized weakness nausea or vomiting and dysuria, patient has history of atrial fibrillation and has been taking oral diltiazem however due to symptoms she has not been able to take any of her medication for last 2 days and nausea presented in atrial fibrillation with RVR patient was started on diltiazem drip rate is trending down however patient had lost her IV and off the drip difficult to start IV, started the patient on diltiazem 60 mg q.6 monitor, today rate is trading and was seen Cardiology and switched patient to her home dose of Diltiazem 240mg daily and starte back on he Eliquis to prevent risk of CVA. chest x-ray showed patchy infiltrate and being treated with community-acquired pneumonia with Rocephin and azithromycin, patient also has a dysuria urine culture is growing E coli sensitive to Rocephin will continue, today patient states feeling much abdominal pain dysuria have improved and shortness of breath is better denies any chest pain shortness of breath palpitation fever or chills. patient is clinically stable repeat checks x-ray tomorrow and further recommendation to follow (2) CAP (community acquired pneumonia): Code(s): J18.9 - Pneumonia, unspecified organism Status: Acute Assessment and Plan: Patient is on a Zithromax and Rocephin. When I looked at the chest x-ray myself it looks more like pulmonary edema. I did order an echo for her. At 1 time she had been on Lasix a couple years ago according to [facility] has not renewed her prescription. (3) UTI (urinary tract infection): Qualifiers: Hematuria presence: without hematuria Urinary tract infection type: site unspecified Qualified Code(s): N39.0 - Urinary tract infection, site not specified Code(s): N39.0 - Urinary tract infection, site not specified Status: Acute Assessment and Plan: She is on Rocephin. Urine and blood cultures ar (4) Suspected COVID-19 virus infection: Code(s): Z20.828 - Contact with and (suspected) exposure to other viral communicable diseases Status: Acute (5) ISABELLE (generalized anxiety disorder): Code(s): F41.1 - Generalized anxiety disorder Status: Chronic Assessment and Plan: continue with her Celexa. (6) Essential (primary) hypertension: Code(s): I10 - Essential (primary) hypertension Status: Acute Assessment and Plan: She is on oral diltiazem typically but now she is on a drip at this time. (7) Acquired hypothyroidism: Code(s): E03.9 - Hypothyroidism, unspecified Status: Acute Assessment and Plan: Continue to levothyroxine and check thyroid level (8) Anxiety associated with depression: Code(s): F41.8 - Other specified anxiety disorders Status: Acute Assessment and Plan: Continue with Celexa. Subjective Date/time seen: 04/13/20 12:19 patient is 84-year-old female presented emergency with with complaint generalized weakness nausea or vomiting and dysuria, patient has history of atrial fibrillation and has been taking oral diltiazem however due to symptoms she has not been able to take any of her medication for last 2 days and nausea presented in atrial fibrillation with RVR patient was started on diltiazem drip rate is trending down however patient h
--- NOTE | 2020-04-13 12:33 | PM.PNCARD ---
Progress Note: A&P Assessment and Plan (1) Atrial fibrillation with RVR: Code(s): I48.91 - Unspecified atrial fibrillation Status: Acute Assessment and Plan: Patient has a long history of paroxysmal atrial fibrillation and was admitted with AFib RVR after she had stopped her diltiazem because of illness. Heart rate is still a little fast with p.o. diltiazem, which she has been on for 2 days. Will continue to follow. Discussed atrial fibrillation extensively with the patient, need for ongoing medication, and risk of cardioembolic events. Resumed Eliquis (2) Acute diastolic CHF (congestive heart failure): Code(s): I50.31 - Acute diastolic (congestive) heart failure Status: Acute Assessment and Plan: The patient appears to have had some transient diastolic heart failure on admission which has mostly resolved with better heart rate control, due to AFib RVR and diastolic dysfunction. (3) UTI (urinary tract infection): Qualifiers: Hematuria presence: without hematuria Urinary tract infection type: site unspecified Qualified Code(s): N39.0 - Urinary tract infection, site not specified Code(s): N39.0 - Urinary tract infection, site not specified Status: Acute Assessment and Plan: On antibiotics, improving. Blood cultures negative. (4) Essential (primary) hypertension: Code(s): I10 - Essential (primary) hypertension Status: Acute Assessment and Plan: Resumed diltiazem (5) Mixed hyperlipidemia: Code(s): E78.2 - Mixed hyperlipidemia Status: Acute Assessment and Plan: currently not treated. (6) Noncompliance: Code(s): Z91.19 - Patient's noncompliance with other medical treatment and regimen Status: Acute Assessment and Plan: Patient has been noncompliant with follow-up with our office which may be a problem with appropriate medical care. Says she never felt any atrial fibrillation so did not think it needed follow-up. (7) Anxiety associated with depression: Code(s): F41.8 - Other specified anxiety disorders Status: Acute Assessment and Plan: The patient has psychosocial stressors and no family support. She may benefit from social media sr strategy manager. She is wondering how long she will be able to remain in her own house but has no help. Subjective Date/time seen: 04/13/20 12:33 Follow-up for AFib RVR. History of PAF, but patient had stopped her diltiazem because of illness. Also had acute diastolic heart failure on admission as well as UTI. Date of service: 04/13/2020. Cardizem switched from IV to p.o. yesterday, and Eliquis resumed. Feeling a little better. No palps, SOB, dizziness. Review of Systems Constitutional: Constitutional: Reports fatigue ENT: Denies epistaxis Cardiovascular: Cardiovascular: Denies chest pain, Denies pedal edema, Denies lightheadedness and Denies palpitations Respiratory: Respiratory: Denies dyspnea Gastrointestinal: Gastrointestinal: Denies abdominal pain Genitourinary: Genitourinary: Reports dysuria Musculoskeletal: Musculoskeletal: Denies back pain Integumentary/Breasts: Skin/Breast: Denies rash Neurologic: Denies confusion Psychiatric: Psychiatric: Reports depression Exam Narrative: Exam Narrative: older lady sitting up in a chair, appears a bit tired, working on her lunch Const: General: comfortable and no acute distress HENMT: General nose exam: no epistaxis Eyes: EOM: EOMs intact bilaterally Neck: Neck: supple Resp: Effort & Inspection: normal respiratory effort Auscultation: clear to auscultation bilaterally Cardio: Rhythm: abnormal rhythm irregularly irregular GI: Inspection: no
--- NOTE | 2020-04-13 14:30 | PC.NURSE ---
IV antibiotics infiltrated, patient extremely upset crying, wailing in room. Refuses to be stuck with another IV and refusing any IV antibiotics. states she is 85 and is tired of being in pain. attempted to talk with patient about importance of antibiotics. patient still refuses.
[2020-04-14] VITALS (9 sets, daily range): BP systolic 138–154; BP diastolic 73–88; PULSE 72–106; RESP 18–22; TEMP 36.6–37.2; O2SAT 95–98
[2020-04-14 06:48] LABS: Hematocrit 41.8 % (37.0-47.0); Hemoglobin 13.4 g/dL (12.0-15.0); Mean Corpuscular HGB Conc 32.1 g/dl (32-36); Mean Corpuscular Hemoglobin 30.2 pg (26-34); Mean Corpuscular Volume 94.4 fl (80-100); Mean Platelet Volume 9.7 fl (7.4-10.4); Platelet Count Result 291 k/mm3 (150-375); Red Blood Count 4.43 M/mm3 (4.2-5.4); Red Cell Distribution Width 13.6 % (11.5-14.5); White Blood Count 7.9 K/mm3 (4.5-10.0)
[2020-04-14 07:07] LABS: Anion Gap 4 mmol/L (8-16); Blood Urea Nitrogen 21 mg/dL (7-17); Calcium 8.6 mg/dL (8.4-10.2); Carbon Dioxide 31 mmol/L (22-30); Chloride 100 mmol/L (98-107); Estimated CRCL calculation 69 ml/min; Estimated Glomerular Filt Rate > 60; Glucose 110 mg/dL (65-105); Potassium 3.7 mmol/L (3.4-5.0); Sodium 135 mmol/L (137-145)
[2020-04-14] MEDS: APIXABAN 5 MG TABLET PO ×2 (10:07→21:10)
[2020-04-14] MEDS: CITALOPRAM HYDROBROMIDE 20 MG TABLET PO (10:08)
[2020-04-14] MEDS: CELECOXIB 200 MG CAPSULE PO ×2 (10:08→18:48)
--- NOTE | 2020-04-14 10:24 | PM.PNCARD ---
Progress Note: A&P Assessment and Plan (1) Atrial fibrillation with RVR: Code(s): I48.91 - Unspecified atrial fibrillation Status: Acute Assessment and Plan: Patient has a long history of paroxysmal atrial fibrillation and was admitted with AFib RVR after she had stopped her diltiazem because of illness. Heart rate is still a little fast with p.o. diltiazem, which she has been on for 2 days. Will continue to follow. Discussed atrial fibrillation extensively with the patient, need for ongoing medication, and risk of cardioembolic events. Resumed Eliquis (2) Acute diastolic CHF (congestive heart failure): Code(s): I50.31 - Acute diastolic (congestive) heart failure Status: Acute Assessment and Plan: The patient appears to have had some transient diastolic heart failure on admission which has mostly resolved with better heart rate control, due to AFib RVR and diastolic dysfunction. Potassium is a little low and will replace with for the close p.o. x1 (3) UTI (urinary tract infection): Qualifiers: Hematuria presence: without hematuria Urinary tract infection type: site unspecified Qualified Code(s): N39.0 - Urinary tract infection, site not specified Code(s): N39.0 - Urinary tract infection, site not specified Status: Acute Assessment and Plan: On antibiotics, improving. Blood cultures negative. (4) Essential (primary) hypertension: Code(s): I10 - Essential (primary) hypertension Status: Acute Assessment and Plan: Resumed diltiazem (5) Mixed hyperlipidemia: Code(s): E78.2 - Mixed hyperlipidemia Status: Acute Assessment and Plan: currently not treated. (6) Noncompliance: Code(s): Z91.19 - Patient's noncompliance with other medical treatment and regimen Status: Acute Assessment and Plan: Patient has been noncompliant with follow-up with our office which may be a problem with appropriate medical care. Says she never felt any atrial fibrillation so did not think it needed follow-up. (7) Anxiety associated with depression: Code(s): F41.8 - Other specified anxiety disorders Status: Acute Assessment and Plan: The patient has psychosocial stressors and no family support. She may benefit from child protective services social worker. She is wondering how long she will be able to remain in her own house but has no help. Subjective Date/time seen: 04/14/20 10:24 Interval history: reason for consultation /chief complaint: Atrial fibrillation date of service 04/14/2020: Feeling better today. Not short of breath. No chest pain. Review of Systems Constitutional: Constitutional: Reports fatigue, Reports lethargy and Reports weakness Eyes: Eyes: Reports no additional eye complaints ENT: Denies epistaxis Cardiovascular: Cardiovascular: Denies chest pain, Denies pedal edema, Denies lightheadedness, Denies palpitations, Denies dyspnea and Denies dyspnea on exertion Respiratory: Respiratory: Denies chest congestion, Denies cough, Denies dyspnea, Denies dyspnea on exertion and Denies wheezing Gastrointestinal: Gastrointestinal: Denies abdominal pain, Denies melena, Denies hematochezia, Reports nausea and Denies hematemesis Genitourinary: Genitourinary: Denies hematuria and Reports dysuria Musculoskeletal: Musculoskeletal: Denies back pain and Reports stiffness Integumentary/Breasts: Skin/Breast: Reports erythema ( phlebitis related to IV sites) and Denies rash Neurologic: Denies confusion and Reports weakness Psychiatric: Psychiatric: Reports anxiety, Denies confusion and Reports depression Endocrine: Endocrine: Reports fatigue and Denies palpitations Allergic
[2020-04-14 12:13] LABS: SARS-CoV-2 RNA PCR Negative
[2020-04-14] MEDS: POTASSIUM CHLORIDE 20 MEQ TABLET 40 MEQ PO (13:00)
--- NOTE | 2020-04-14 16:26 | PM.IMPN ---
Progress Note: A&P Assessment and Plan (1) Atrial fibrillation with RVR: Code(s): I48.91 - Unspecified atrial fibrillation Status: Acute Assessment and Plan: patient typically takes diltiazem at home. But stated that she was too sick to take it the last couple days. She is now on a Cardizem drip. She is located in the ICU. Her heart rate is in the lower 1 teens. Blood pressure is still slightly elevated. The patient stated that she was on Xarelto at 1 time. However she is at high risk for bleeding due to her age and instability. 04/14/20 16:26 patient is 84-year-old female presented emergency with with complaint generalized weakness nausea or vomiting and dysuria, patient has history of atrial fibrillation and has been taking oral diltiazem however due to symptoms she has not been able to take any of her medication for last 2 days and nausea presented in atrial fibrillation with RVR patient was started on diltiazem drip rate is trending down however patient had lost her IV and off the drip difficult to start IV, started the patient on diltiazem 60 mg q.6 monitor, today rate is trading and was seen Cardiology and switched patient to her home dose of Diltiazem 240mg daily and starte back on he Eliquis to prevent risk of CVA. chest x-ray showed patchy infiltrate and being treated with community-acquired pneumonia with Rocephin and azithromycin, patient also has a dysuria urine culture is growing E coli sensitive to Rocephin will continue, Today patient complains or more pain cough and just not feeling very, patient repeat chest x-ray shows persistent pneumonia will go ahead stop Rocephin and add Zosyn, her urine is growing E coli sensitive to Zosyn will continue will continue PT OT and repeat x-ray in 2 days. (2) CAP (community acquired pneumonia): Code(s): J18.9 - Pneumonia, unspecified organism Status: Acute Assessment and Plan: Patient is on a Zithromax and Rocephin. When I looked at the chest x-ray myself it looks more like pulmonary edema. I did order an echo for her. At 1 time she had been on Lasix a couple years ago according to [facility] has not renewed her prescription. (3) UTI (urinary tract infection): Qualifiers: Hematuria presence: without hematuria Urinary tract infection type: site unspecified Qualified Code(s): N39.0 - Urinary tract infection, site not specified Code(s): N39.0 - Urinary tract infection, site not specified Status: Acute Assessment and Plan: She is on Rocephin. Urine and blood cultures ar (4) Suspected COVID-19 virus infection: Code(s): Z20.828 - Contact with and (suspected) exposure to other viral communicable diseases Status: Acute Assessment and Plan: test was negative (5) ISABELLE (generalized anxiety disorder): Code(s): F41.1 - Generalized anxiety disorder Status: Chronic Assessment and Plan: continue with her Celexa. (6) Essential (primary) hypertension: Code(s): I10 - Essential (primary) hypertension Status: Acute Assessment and Plan: She is on oral diltiazem typically but now she is on a drip at this time. (7) Acquired hypothyroidism: Code(s): E03.9 - Hypothyroidism, unspecified Status: Acute Assessment and Plan: Continue to levothyroxine and check thyroid level (8) Anxiety associated with depression: Code(s): F41.8 - Other specified anxiety disorders Status: Acute Assessment and Plan: Continue with Celexa. Subjective Date/time seen: 04/14/20 16:26 patient is 84-year-old female presented emergency with with complaint generalized weakness nausea or vomiting and dysuria, patient has history of atrial fibrillation and has been taking oral diltiazem however due to symptoms she has not been able to take any of her medication for last 2 days and nausea presented in atrial fibrillation with RVR patient was started on
[2020-04-15] VITALS (7 sets, daily range): BP systolic 136–148; BP diastolic 53–91; PULSE 60–112; RESP 18–20; TEMP 36.7–36.8; O2SAT 96–97
[2020-04-15 05:59] LABS: Hemoglobin 13.4 g/dL (12.0-15.0); Mean Corpuscular HGB Conc 31.9 g/dl (32-36); Mean Corpuscular Hemoglobin 30.3 pg (26-34); Mean Platelet Volume 9.7 fl (7.4-10.4); Platelet Count Result 280 k/mm3 (150-375); Red Blood Count 4.42 M/mm3 (4.2-5.4); Red Cell Distribution Width 13.7 % (11.5-14.5); White Blood Count 7.5 K/mm3 (4.5-10.0)
[2020-04-15 06:13] LABS: Anion Gap 5 mmol/L (8-16); Blood Urea Nitrogen 25 mg/dL (7-17); Calcium 8.4 mg/dL (8.4-10.2); Carbon Dioxide 29 mmol/L (22-30); Chloride 103 mmol/L (98-107); Estimated CRCL calculation 69 ml/min; Estimated Glomerular Filt Rate > 60; Glucose 114 mg/dL (65-105); Potassium 4.1 mmol/L (3.4-5.0); Sodium 137 mmol/L (137-145)
[2020-04-15] MEDS: APIXABAN 5 MG TABLET PO (10:30)
[2020-04-15] MEDS: CITALOPRAM HYDROBROMIDE 20 MG TABLET PO (10:31)
[2020-04-15] MEDS: CELECOXIB 200 MG CAPSULE PO ×2 (10:31→18:07)
--- NOTE | 2020-04-15 11:09 | PM.PNCARD ---
Progress Note: A&P Assessment and Plan (1) Atrial fibrillation with RVR: Code(s): I48.91 - Unspecified atrial fibrillation Status: Acute Assessment and Plan: Patient has a long history of paroxysmal atrial fibrillation and was admitted with AFib RVR after she had stopped her diltiazem because of illness. Heart rate is still a little fast with p.o. diltiazem, which she has been on for 2 days. Will continue to follow. Discussed atrial fibrillation extensively with the patient, need for ongoing medication, and risk of cardioembolic events. Resumed Eliquis (2) Acute diastolic CHF (congestive heart failure): Code(s): I50.31 - Acute diastolic (congestive) heart failure Status: Acute Assessment and Plan: The patient appears to have had some transient diastolic heart failure on admission which has mostly resolved with better heart rate control, due to AFib RVR and diastolic dysfunction. low-dose furosemide 20 mg daily will be started (3) UTI (urinary tract infection): Qualifiers: Hematuria presence: without hematuria Urinary tract infection type: site unspecified Qualified Code(s): N39.0 - Urinary tract infection, site not specified Code(s): N39.0 - Urinary tract infection, site not specified Status: Acute Assessment and Plan: On antibiotics, improving. Blood cultures negative. (4) Essential (primary) hypertension: Code(s): I10 - Essential (primary) hypertension Status: Acute Assessment and Plan: Resumed diltiazem (5) Mixed hyperlipidemia: Code(s): E78.2 - Mixed hyperlipidemia Status: Acute Assessment and Plan: currently not treated. (6) Noncompliance: Code(s): Z91.19 - Patient's noncompliance with other medical treatment and regimen Status: Acute Assessment and Plan: Patient has been noncompliant with follow-up with our office which may be a problem with appropriate medical care. Says she never felt any atrial fibrillation so did not think it needed follow-up. (7) Anxiety associated with depression: Code(s): F41.8 - Other specified anxiety disorders Status: Acute Assessment and Plan: The patient has psychosocial stressors and no family support. She may benefit from child protective services social worker. She is wondering how long she will be able to remain in her own house but has no help. Subjective Date/time seen: 04/15/20 11:09 Interval history: reason for consultation /chief complaint: Atrial fibrillation date of service 04/15/2020: emotionally upset today. No chest pain or shortness of breath. No palpitations or edema though Review of Systems Constitutional: Constitutional: Reports fatigue, Reports lethargy and Reports weakness Eyes: Eyes: Reports no additional eye complaints ENT: Denies epistaxis Cardiovascular: Cardiovascular: Denies chest pain, Denies pedal edema, Denies lightheadedness, Denies palpitations, Denies dyspnea and Denies dyspnea on exertion Respiratory: Respiratory: Denies chest congestion, Denies cough, Denies dyspnea, Denies dyspnea on exertion and Denies wheezing Gastrointestinal: Gastrointestinal: Denies abdominal pain, Denies melena, Denies hematochezia, Reports nausea and Denies hematemesis Genitourinary: Genitourinary: Denies hematuria and Reports dysuria Musculoskeletal: Musculoskeletal: Denies back pain and Reports stiffness Integumentary/Breasts: Skin/Breast: Reports erythema ( phlebitis related to IV sites) and Denies rash Neurologic: Denies confusion and Reports weakness Psychiatric: Psychiatric: Reports anxiety, Denies confusion and Reports depression Endocrine: Endocrine: Reports fatigue and Denies palpit
[2020-04-15] MEDS: FUROSEMIDE 20 MG TABLET PO (12:55)
--- NOTE | 2020-04-15 13:28 | PM.IMPN ---
Progress Note: A&P Assessment and Plan (1) Atrial fibrillation with RVR: Code(s): I48.91 - Unspecified atrial fibrillation Status: Acute Assessment and Plan: Patient is 84-year-old female presented emergency with with complaint generalized weakness nausea or vomiting and dysuria, patient has history of atrial fibrillation and has been taking oral diltiazem however due to symptoms she has not been able to take any of her medication for last 2 days and nausea presented in atrial fibrillation with RVR patient was started on diltiazem drip rate is trending down however patient had lost her IV and off the drip difficult to start IV, started the patient on diltiazem 60 mg q.6 monitor, today rate is trading and was seen Cardiology and switched patient to her home dose of Diltiazem 240mg daily and starte back on he Eliquis to prevent risk of CVA. Chest x-ray showed patchy infiltrate and being treated with community-acquired pneumonia with Zosyn and azithromycin, patient also has a dysuria urine culture is growing E coli. See previous notes. Ongoing cough and SOB, rpt CXr chitra. Continiue oral diltiazem (2) CAP (community acquired pneumonia): Code(s): J18.9 - Pneumonia, unspecified organism Status: Acute Assessment and Plan: Patient is on a Zithromax and Zosyn. CXR from 04/14 shows pumology edema rpt cXR chitra (3) UTI (urinary tract infection): Qualifiers: Hematuria presence: without hematuria Urinary tract infection type: site unspecified Qualified Code(s): N39.0 - Urinary tract infection, site not specified Code(s): N39.0 - Urinary tract infection, site not specified Status: Acute Assessment and Plan: Urine culture is positive for Ecoli and blood cultures are negative (4) Suspected COVID-19 virus infection: Code(s): Z20.828 - Contact with and (suspected) exposure to other viral communicable diseases Status: Acute Assessment and Plan: Test was negative (5) ISABELLE (generalized anxiety disorder): Code(s): F41.1 - Generalized anxiety disorder Status: Chronic Assessment and Plan: continue with her Celexa. (6) Essential (primary) hypertension: Code(s): I10 - Essential (primary) hypertension Status: Acute Assessment and Plan: She is on oral diltiazem typically but now she is on a drip at this time. (7) Acquired hypothyroidism: Code(s): E03.9 - Hypothyroidism, unspecified Status: Acute Assessment and Plan: Continue to levothyroxine and check thyroid level (8) Anxiety associated with depression: Code(s): F41.8 - Other specified anxiety disorders Status: Acute Assessment and Plan: Continue with Celexa. Subjective Date/time seen: 04/15/20 13:28 Interval history: DOS 04/15 Patient is 84-year-old female presented emergency with with complaint generalized weakness nausea or vomiting and dysuria, patient has history of atrial fibrillation and has been taking oral diltiazem however due to symptoms she has not been able to take any of her medication for last 2 days and nausea presented in atrial fibrillation with RVR patient was started on diltiazem drip rate is trending down however patient had lost her IV and off the drip difficult to start IV, started the patient on diltiazem 60 mg q.6 monitor, today rate is trading and was seen Cardiology and switched patient to her home dose of Diltiazem 240mg daily and started back on he Eliquis to prevent risk of CVA. chest x-ray showed patchy infiltrate and being treated with community-acquired pneumonia with zosyn and azithromycin, patient also has a dysuria urine culture is growing E coli. See previous notes Today pt has a ongoing cough will rpt CXr chitra on patient. Wcc is NL. BC negative. UC is positive for ECOLI Review of Systems Constitutional: Constitutional: Reports fatigue and Reports lethargy Cardiovascular: Cardiovascul
--- NOTE | 2020-04-15 20:30 | PC.NURSE ---
pt was given information about leaving AMA after she insisted on leaving. pt given opportunity to ask questions, but had none. IV removed and telemetry removed. pt dressed herself and was taken out by wheelchair.
--- NOTE | 2020-04-15 21:39 | PM.EVENT ---
Event Note Event Note Event Note: I was notified by nursing staff that the patient wanted to leave AMA. The patient was alert and oriented and understood consequences of leaving against medical advise. The patient exited building 8:30 p.m.
--- NOTE | 2020-04-16 06:33 | WPDCDIQUERY2 ---
CDI Query Clarification Request - Acute diastolic CHF has been documented by cardiology - CXR from 04/14 shows pumology edema rpt cXR chitra documented by hospitalist. Please clarify if acute diastolic CHF was ruled in or ruled out. <Faith Amanda RN - Last Filed: 04/16/20 06:35> Acute diastolic CHF was ruled out <Kaya Otero MD - Last Filed: 04/18/20 15:56>
--- NOTE | 2020-04-16 14:36 | PCCCNOTE ---
Received call from pt. and then call from Rosa Isela at [facility]. Pt. left AMA from the hospital last night. Pt. is now home and wants to go to [facility] for SNF as she feels unable to care for herself at home. Spoke with Rosa Isela and faxed updates including PT/OT and negative Covid-19 test. Per Rosa Isela they will submit for [facility] auth and tentatively accept from home. Call to nephew Andrew Del Valle at [phone] to inform. Also spoke with pt. and encouraged her to establish a new HPOA with a supportive family member like Andrew. Received call again from Rosa Isela at [facility] who will also contact Andrew to coordinate pt.'s transfer to [facility].
--- NOTE | 2020-04-18 15:51 | PM.DS ---
DS: Admitting Diagnosis Admitting Diagnosis Admitting Diagnosis: sepsis,uti,a fib with rvr DS: Discharge Diagnosis Discharge Diagnosis (1) Atrial fibrillation with RVR: Code(s): I48.91 - Unspecified atrial fibrillation Status: Acute Assessment and Plan: Patient is 84-year-old female presented emergency with with complaint generalized weakness nausea or vomiting and dysuria, patient has history of atrial fibrillation and has been taking oral diltiazem however due to symptoms she has not been able to take any of her medication for last 2 days and nausea presented in atrial fibrillation with RVR patient was started on diltiazem drip rate is trending down however patient had lost her IV and off the drip difficult to start IV, started the patient on diltiazem 60 mg q.6 monitor, today rate is trading and was seen Cardiology and switched patient to her home dose of Diltiazem 240mg daily and starte back on he Eliquis to prevent risk of CVA. Chest x-ray showed patchy infiltrate and being treated with community-acquired pneumonia with Zosyn and azithromycin, patient also has a dysuria urine culture is growing E coli. See previous notes. Ongoing cough and SOB, PT felt AMA 04/15 later in the evening. (2) CAP (community acquired pneumonia): Code(s): J18.9 - Pneumonia, unspecified organism Status: Acute Assessment and Plan: Patient is on a Zithromax and Zosyn. CXR from 04/14 shows pumology edema rpt cXR chitra (3) UTI (urinary tract infection): Qualifiers: Hematuria presence: without hematuria Urinary tract infection type: site unspecified Qualified Code(s): N39.0 - Urinary tract infection, site not specified Code(s): N39.0 - Urinary tract infection, site not specified Status: Acute Assessment and Plan: Urine culture is positive for Ecoli and blood cultures are negative (4) Suspected COVID-19 virus infection: Code(s): Z20.828 - Contact with and (suspected) exposure to other viral communicable diseases Status: Acute Assessment and Plan: Test was negative (5) ISABELLE (generalized anxiety disorder): Code(s): F41.1 - Generalized anxiety disorder Status: Chronic Assessment and Plan: continue with her Celexa. (6) Essential (primary) hypertension: Code(s): I10 - Essential (primary) hypertension Status: Acute Assessment and Plan: She is on oral diltiazem typically but now she is on a drip at this time. (7) Acquired hypothyroidism: Code(s): E03.9 - Hypothyroidism, unspecified Status: Acute Assessment and Plan: Continue to levothyroxine and check thyroid level (8) Anxiety associated with depression: Code(s): F41.8 - Other specified anxiety disorders Status: Acute Assessment and Plan: Continue with Celexa. DS: Summary Time Spent with Patient Time attestation: Total time spent providing and/or coordinating discharge services:20 minutes on day of discharge Exam Narrative: Exam Narrative: morbidly obese Const: Orientation/consciousness: oriented to person, oriented to place, oriented to time and patient oriented x3 Eyes: Pupils: Equal, round and reactive pupils present Chest: Chest palpation & inspection: normal inspection of the chest Resp: Auscultation: diminished lung sounds Percussion: percussion normal Other: BL decreased BS Cardio: Palpation: normal PMI Rate: regular rate Rhythm: regular rhythm Heart sounds: S1 normal heart sound present and S2 normal heart sound present Other: irregularly irregular GI: Inspection: normal to inspection Auscultation: normal bowel sounds Rectal Exam: deferred Skin: General skin exam: normal color Lesions: no lesions Rashes: no rashes Trauma: no lacerations or abrasions Wounds: no wounds Hair: normal Nails: normal Other: No edema of ankles Neuro: General: oriented to person, oriented to place, oriented to letha
== END 2020-04-15 20:30 | disposition left against medical advice (07) | DRG 308 ==
LOC: ANHED 16:09 → ANHICU 04-10 02:33 → ANHIMU 04-11 17:03 → ANH3MEDSUR 04-14 12:39 → ANHICU 04-21 08:23 → ANHIMU 04-21 08:23
PROVIDERS: General Practice; Nurse Practitioner; Admitting Provider Family Medicine; Emergency Provider Emergency Medicine; PCP Internal Medicine; Visit Provider Internal Medicine
DX: I48.91 Unspecified atrial fibrillation (principal); J18.9 Pneumonia, unspecified organism; N39.0 Urinary tract infection, site not specified; Z68.41 Body mass index [BMI] 40.0-44.9, adult; B96.20 Unspecified Escherichia coli [E. coli] as the cause of diseases classified elsewhere; E66.01 Morbid (severe) obesity due to excess calories; Z20.828 Contact with and (suspected) exposure to other viral communicable diseases; F41.1 Generalized anxiety disorder; F41.8 Other specified anxiety disorders; I10 Essential (primary) hypertension; E78.2 Mixed hyperlipidemia; Z91.19 Patient's noncompliance with other medical treatment and regimen; Z79.899 Other long term (current) drug therapy
CPT/HCPCS: 36415; 51701; 71045; 80048; 80053; 81001; 83605; 83735; 83880; 84443; 84484; 85025; 85027; 87040; 87077; 87086; 87088; 87186; 87635; 93005; 96365; 96366; 96367; 96368; 97110; 97116; 97161; 97165; 97530; 97535; 99285; A9270; C8929; C9803; J0456; J0696; J1650; J2543; J7120; Q9957; U0003

== ENCOUNTER 2020-07-16 13:26 | Outpatient (CLI) | payer MEDICARE, SELFPAY ==
--- NOTE | ~2020-07-16 | XR_ITS ---
EXAMINATION: XR chest 2V DATE: 07/16/2020 14:18 INDICATION: Heart failure, unspecified. TECHNIQUE: Frontal and lateral views of the chest were obtained on 3 radiographs. COMPARISON: Chest single view 04/14/2020, CT abdomen and pelvis 07/03/2014 FINDINGS: The chest demonstrates clear lungs without pneumonia, pleural effusion, or pneumothorax. Th e heart size is normal. IMPRESSION: 1. No acute cardiopulmonary disease. Reviewed, dictated and finalized at location B. [employer] [employer]
[2020-07-16 14:01] LABS: Basophils Absolute Auto 0.1 K/mm3 (0.0-0.1); Basophils Percent Auto 0.8 % (0.2-1.2); Eosinophils Absolute Auto 0.4 K/mm3 (0-0.3); Eosinophils Percent Auto 4.6 % (0-4.4); Hematocrit 49.3 % (37.0-47.0); Hemoglobin 16.2 g/dL (12.0-15.0); Immature Granulocyte Absolute 0.02 K/mm3 (0.00-0.031); Immature Granulocyte Percent A 0.3 % (0-0.5); Lymphocytes Absolute Auto 1.88 K/mm3 (0.9-3.2); Lymphocytes Percent Auto 23.9 % (18.3-44.2); Mean Corpuscular HGB Conc 32.9 g/dl (32-36); Mean Corpuscular Hemoglobin 30.5 pg (26-34); Mean Corpuscular Volume 92.8 fl (80-100); Mean Platelet Volume 9.6 fl (7.4-10.4); Monocytes Absolute Auto 0.9 K/mm3 (0.1-0.6); Monocytes Percent Auto 11.7 % (2.6-8.5); Neutrophils Absolute Auto 4.6 K/mm3 (1.3-6.7); Neutrophils Percent Auto 58.7 % (45.5-73.1); Platelet Count Result 270 k/mm3 (150-375); Red Blood Count 5.31 M/mm3 (4.2-5.4); Red Cell Distribution Width 13.7 % (11.5-14.5); White Blood Count 7.9 K/mm3 (4.5-10.0)
[2020-07-16 14:10] LABS: Hemoglobin A1C 5.8 % (<5.7)
[2020-07-16 14:15] LABS: Alanine Aminotransferase 13 U/L (4-35); Albumin Level 4.4 g/dL (3.5-5.1); Alkaline Phosphatase 158 U/L (38-126); Anion Gap 5 mmol/L (8-16); Aspartate Amino Transferase 28 U/L (14-36); Bilirubin,Total 0.6 mg/dL (0.2-1.3); Blood Urea Nitrogen 20 mg/dL (7-17); Calcium 9.8 mg/dL (8.4-10.2); Carbon Dioxide 32 mmol/L (22-30); Chloride 103 mmol/L (98-107); Cholesterol 284 mg/dL (0-200); Estimated Glomerular Filt Rate > 60; Glucose 111 mg/dL (65-105); HDL Direct 55 mg/dL; Potassium 4.4 mmol/L (3.4-5.0); Sodium 140 mmol/L (137-145); Triglycerides 159 mg/dL (<150)
[2020-07-16 14:21] LABS: Prothrombin Time 13.3 Seconds (11.1-14.7)
[2020-07-16 14:26] LABS: LDL Cholesterol Direct 192 mg/dL
[2020-07-16 14:59] LABS: Vitamin D 25 Hydroxy 24.3 ng/mL
== END 2020-07-16 13:27 | disposition home or self-care (01) ==
LOC: ANHLAB 13:38
PROVIDERS: PCP Internal Medicine; Visit Provider Internal Medicine
DX: E78.2 Mixed hyperlipidemia (principal); I10 Essential (primary) hypertension; Z79.899 Other long term (current) drug therapy; E03.9 Hypothyroidism, unspecified; D68.9 Coagulation defect, unspecified; I48.91 Unspecified atrial fibrillation; E55.9 Vitamin D deficiency, unspecified; I50.9 Heart failure, unspecified
CPT/HCPCS: 36415; 71046; 80053; 80061; 82306; 83036; 84439; 84443; 85025; 85610